=== PATIENT | female | born 1965 | race Caucasian/White ===

== ENCOUNTER 2018-11-27 05:59 | Inpatient (IN) | payer BC ==
[2018-11-27] MEDS ORDERED: Lactated Ringers 1000 ML Bag* 1,000 ML IV SCH (06:00)
[2018-11-27] MEDS ORDERED: Famotidine IV* 10 MG/ML 2 ML (20 mg) IV ONE (06:00)
--- OUTSIDE RECORDS SUMMARY | 2018-11-27 06:02 | XMS REPORT | Continuity of Care Document ---
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 Onset: 11/23/2013 Irritable bowel syndrome Matt Billings M.D. Onset: 11/23/2013 Hiatal hernia Matt Billings M.D. Onset: 11/23/2013 Social History Type Date Description Comments Sex Unknown Tobacco Use Start: Unknown Never Smoked Cigarettes Smoking Status Reviewed: 11/15/18 Never Smoked Cigarettes ETOH Use Never used alcohol ETOH Use Denies alcohol use Tobacco Use Start: Unknown Patient has never smoked Recreational Drug Use Never Used Drugs Exercise Type/Frequency Does not exercise Allergies, Adverse Reactions, Alerts Active Allergies Reaction Severity Comments Date NKDA 11/23/2013 Multiple Food Allergies' 10/28/2017 Medications Active Medications SIG Qnty Indications Ordering Date Provider Suprep Bowel Prep Kit take according to 354ml Cm Last 10/20/2018 the instructions you MD João 17.5-3.13-1.6GM/177ML received, the Solution afternoon before and morning of your procedure. [facility] Wort 75mg daily Unknown 150mg Capsules Iron 1 by mouth every day Unknown 325(65Fe) mg Tablets Vitamin C 1 (250MG) by mouth Unknown daily Acetaminophen 2 every morning Unknown 500mg Tablets Magnesium 1 by mouth every day Unknown 250mg Tablets Glucosamine 1500 1 by mouth every day Unknown Complex 1500Com Capsules Flaxseed Oil 1200 MG daily Unknown Oil Coconut Oil 1000 mg daily Unknown Oil Norlyda 1 by mouth every day Unknown 0.35mg Tablets Vitamin K2 1 by mouth every day Unknown 100mcg Capsules Vitamin B 12 2 tabs daily Unknown 2500mcg chewable Green Tea Gel 1 cap bid Unknown 400mg L-Carnitine 1 cap daily Unknown 500mg Vitamin D-3 1 by mouth every day Unknown 1000Unit Capsules Alphalipoic Acid 1 cap Unknown 200mg Vitamin B-1 2 caps once a day Unknown 100mg Tablets Immunizations CPT Code Status Date Vaccine Lot # [id number] Given 09/12/2014 Afluria Vaccine Vital Signs Date Vital Result Comment 11/15/2018 9:22am Heart Rate 58 /min Respiratory Rate 18 /min Body Temperature 98.9 F 10/20/2018 3:06pm Height 66 inches 5'6" Weight 191.00 lb Heart Rate 72 /min BP Systolic Sitting 114 mmHg BP Diastolic Sitting 80 mmHg Respiratory Rate 16 /min Body Temperature 98.2 F BMI (Body Mass Index) 30.8 kg/m2 Results Test Date Facility Test Result H/L Range Note Laboratory test 11/14/2018 [facility] Clotest SEE RESULT 1 , [address] [place] [address] [phone] Laboratory test 09/19/2018 [facility] HCG < 0.60 mIU/ mL [address] [place] [address] [phone] FSH (Follicle Stim Hormone) 5.5 mIU/mL 4 1 [id number] 2 SEE RESULT BELOW Name: HAO CHOU : [address]: Cm Moyer MD Acct: [id number] Unit: [id number] AGE: 53 Location: [facility] Re11/14/18 SEX: F Status: DEP REF SPEC: [id number] CHUY: 11/14/18 [facility] DR: Cm Moyer MD REQ: [id number] RECD: 11/14/18 STATUS: BRANNON MCNEILL DR: Radha Orta MD _ SOURCE: GAS ANTRUM SPDESC: ORDERED: Clotest COMMENTS: [id number] Procedure Result Reported Site Clotest Final 11/15/18743 ML Clotest Negative * ML - Main Lab . END OF REPORT DEPARTMENT OF PATHOLOGY, [address] [place] [address] Ramu Yoder M.D. Director [facility] # [id number] 3 <5.0 Negative 5.0 - 25.0 Indeterminate (Repeat testing recommended after 72 hours) >25.0 Positive Perimenopausal women can display HCG levels of up to 20 mIU/mL 4 Normally menstruating females - Follicular phase 3 - 9 - Mid-cycle peak 4 - 23 - Luteal phase 1 - 6 Postmenopausal females 16 - 114 Procedures Date Code Description Status 12/08/2013 08782021 Mammogram Completed Medical Devices Description No Information Available Encounters Type Date Location Provider Dx Diagnosis Office Visit 10/20/2018 Surgical Cm Last D50.8 Other iron deficiency 3:00p [facility] MD anemias Office Visit 05/26/2018 [facility] Edil Fam, N85.8 Other specified 4:00p [facility] noninflammatory disorders of uterus M54.5 Low back pain R10.2 Pelvic and perineal pain Assessments Date Code Description Provider 10/20/2018 D50.8 Other iron deficiency anemias Cm Moyer MD 05/26/2018 N85.8 Other specified noninflammatory disorders of Dvalejandra Fam MD uterus 05/26/2018 M54.5 Low back pain Edil Fam MD 05/26/2018 R10.2 Pelvic and perineal pain Edil Fam MD Plan of Treatment Future Appointment(s):12/14/2018 3:00 pm - DOREEN Stone-Jaquan at [facility]10/20/2018 - Cm Moyer, MDD50.8 Other iron deficiency anemiasComments:History of anemia of unknown etiology and abdominal pain plan for panendoscopy with risks include but not limited to bleeding and perforation discussed Functional Status Description No Information Available Mental Status Description No Information Available Referrals Refer to Reason for Referral Status Appt Date Khadijah Nixon MD Sent [address] [place] [address] [phone]
--- OUTSIDE RECORDS SUMMARY | 2018-11-27 06:02 | XMS REPORT | Continuity of Care Document ---
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 Medicine Problems Active Problems Provider Date Migraine [...] Result H/L Range Note Laboratory test 11/14/2018 [facility] Clotest SEE RESULT 1 , [address] [place] [address] [phone] Laboratory test 11/14/2018 [facility] Surgical SEE RESULT 3 , [address] [address] [phone] Laboratory test 09/19/2018 [facility] HCG < 0.60 [address] mIU/[place] [address] [phone] FSH (Follicle Stim Hormone) 5.5 mIU/mL 6 1 [id number] 2 SEE RESULT BELOW Name: HAO CHOU : [address]: Cm Moyer MD Acct: [id number] Unit: [id number] AGE: 53 Location: [facility] Re11/14/18 SEX: F Status: DEP REF SPEC: [id number] CHUY: 11/14/[address] [facility] [address]: Cm Moyer MD REQ: [id number] RECD: 11/14/18 STATUS: BRANNON MCNEILL DR: Radha Orta MD _ SOURCE: GAS ANTRUM SPDESC: ORDERED: Clotest COMMENTS: [id number] Procedure Result Reported Site Clotest Final 11/15/18 26 ML Clotest Negative * ML - Main Lab . END OF REPORT DEPARTMENT OF PATHOLOGY, [address] [place] [address] Ramu Yoder M.D. Director [facility] # [id number] 4 SEE RESULT BELOW Name: HAO CHOU : [address]: Cm Moyer MD Acct: [id number] Unit: [id number] AGE: 53 Location: [facility] Re11/14/18 SEX: F Status: DEP REF SPEC: [id number] CHUY: 11/14/[address] [facility] [address]: Cm Moyer MD REQ: [id number] RECD: 11/14/18 STATUS: BOOGIE MCNEILL DR: Radha Orta MD _ ORDERED: LEVEL 4/4, IMMUNO-FIRST, IMMUNO-ADDL/3 COMMENTS: [id number] ADDENDUM Addendum: The following immunohistochemical stains are performed with appropriate controls were performed on part 3 as follows. MLH-1 intact MSH 2 intact MSH 6 intact PMS 2 intact No evidence of DNA mismatch repair proteins defect identified. Addendum Signed (signature on file) Ramu Yoder MD 1151 An H. pylori immunohistochemical stain, with appropriately reacting controls , was performed on sections cut from specimen one and is negative for Helicobacter organisms. Addendum Signed (signature on file) Diamante Lancaster MD 05/02 0930 FINAL DIAGNOSIS 1. Stomach, antrum, biopsy: -- Gastric antral mucosa with mild nonspecific chronic inflammation. -- No active gastritis nor Helicobacter pylori-like organisms identified on H E microscopy. See comment. 2. Gastroesophageal junction, biopsy: -- Superficial squamous mucosa with no significant pathologic abnormality. -- No evidence of reflux esophagitis identified. -- No squamous component is identified. 3. Colon, cecum, biopsy: -- Invasive, moderately differentiated colonic adenocarcinoma. -- Depth of invasion cannot be assessed on this limited biopsy material. See comment. CONTINUED ON NEXT PAGE DEPARTMENT OF PATHOLOGY, [address] [place] [address] Ramu Yoder M.D. Director [facility] # [id number] 4. Colon, sigmoid, biopsy: -- Tubular adenoma. -- No high grade dysplasia or malignancy. Comment: Immunohistochemical stain for Helicobacter pylori-like organisms is pending on part 1 and will be reported in an addendum. Immunohistochemical stains for mismatch repair protein expression panel is pending on part 3 and will be reported in an addendum. Dr. Lancaster has reviewed this case and concurs. CLINICAL HISTORY Anemia PRE-OPERATIVE DIAGNOSIS 1) Rule out H. pylori POST-OPERATIVE DIAGNOSIS Colonoscopy: cecal mass; sigmoid polyp GROSS DESCRIPTION 1. The specimen is received in formalin labeled, Antral Biopsy, and consists of a 0.8 x 0.2 by up to 0.2 cm witt-pink irregular soft tissue fragment which is submitted entirely in one cassette. 2. The specimen is received in formalin labeled, GE Junction Biopsies, and consists of two white-pink irregular soft tissue fragments measuring 0.3 x 0.2 x 0.1 cm and 0.6 by up to 0.4 x 0.1 cm which are submitted entirely in one cassette. 3. The specimen is received in formalin labeled, Cecal Mass Biopsies, and consists of two witt-pink irregular soft tissue fragments measuring 0.2 x 0.2 x 0.1 cm and 0.3 x 0.2 x 0.2 cm admixed with scant red-brown blood clot. Entirely submitted, one cassette. 4. The specimen is received in formalin labeled, Sigmoid Colon Polyp, and consists of a 0.8 x 0.8 by up to 0.4 cm aggregate of witt-pink irregular to polypoid soft tissue fragments which is submitted entirely in one cassette. CONTINUED ON NEXT PAGE DEPARTMENT OF PATHOLOGY, [facility] [place] [id number] Ramu Yoder M.D. Director [facility] # [id number] Signed by and Reported on: Ramu Yoder MD 04/04 1231 END OF REPORT DEPARTMENT OF PATHOLOGY, [facility] [place], [place] [address] Ramu Yoder M.D. Director [facility] # [id number] 5 <5.0 Negative 5.0 - 25.0 Indeterminate (Repeat testing recommended after 72 hours) >25.0 Positive Perimenopausal women can display HCG levels of up to 20 mIU/mL 6 Normally menstruating females - Follicular phase 3 - 9 - Mid-cycle peak 4 - 23 - Luteal phase 1 - 6 Postmenopausal females 16 - 114 Procedures Date Code Description Status 11/14/2018 39049 Colonoscopy Flexible Remove Tumor/Polyp/Lesion Snare Completed Technique 11/14/2018 84472 Endoscopy Upper GI Biopsy Completed 12/08/2013 [id number] Mammogram Completed Medical Devices Description No Information Available Encounters Type Date Location Provider Dx Diagnosis Office Visit 11/15/2018 Surgical Cm Last C18.0 Malignant neoplasm of 8:45a [facility] MD cecum Office Visit 10/20/2018 Sandra Last D50.8 Other iron deficiency 3:00p [facility] MD anemias Office Visit 05/26/2018 [facility] Edil Fam, N85.8 Other specified 4:00p [facility] noninflammatory disorders of uterus M54.5 Low back pain R10.2 Pelvic and perineal pain Assessments Date Code Description Provider 11/17/2018 C18.0 Malignant neoplasm of cecum Cm Moyer MD 11/15/2018 C18.0 Malignant neoplasm of cecum Cm Moyer MD 11/14/2018 C18.0 Malignant neoplasm of cecum Cm Moyer MD 11/14/2018 D12.5 Benign neoplasm of sigmoid colon Cm Moyer MD 11/14/2018 K57.30 Diverticulosis of large intestine without Cm Moyer MD perforation or abscess without bleeding 11/14/2018 D50.8 Other iron deficiency anemias Cm Moyer MD 11/14/2018 K29.50 Unspecified chronic gastritis without Cm Moyer MD bleeding 10/20/2018 D50.8 Other iron deficiency anemias Cm Moyer MD 05/26/2018 N85.8 Other specified noninflammatory disorders of Edil Fam MD uterus 05/26/2018 M54.5 Low back pain Edil Fam MD 05/26/2018 R10.2 Pelvic and perineal pain Edil Fam MD Plan of Treatment Future Appointment(s):11/27/2018 7:30 am - Cm Moyer [facility] at [facility]12/14/2018 3:00 pm - CARLOS StoneP-Cde at [facility]11/15/2018 - Cm Moyer, [facility]18.0 Malignant neoplasm of cecumComments:had a long discussion with patient regarding cecal tumor. Discussed surgery and risks ibnlt bleeding, infection, injury to bowel, ureter, liver, anastomotic leak, other. plan for robotic resection, will order ct chest\\ abdomen/pelvis. All ?'s answered. Functional Status Description No Information Available Mental Status Description No Information Available Referrals Refer to Dr Reason for Referral Status Appt Date Cm Moyer MD FOR 11/27/18 ---[id number]--- INPATIENT Created [address] [place] [address] [phone] Khadijah Nixon MD Sent [address] [place] [address] [phone]
[2018-11-27] MEDS ORDERED: Famotidine IV* 10 MG/ML 2 ML (20 mg) ONE (06:29)
[2018-11-27] MEDS ORDERED: ceFOXitin 2 GM IVPREMIX* 2 GM/50 ML BAG ONE (06:29)
[2018-11-27] MEDS ORDERED: Bupivacaine 0.5%* 50 ML MDV VIAL ONE (06:41)
[2018-11-27] MEDS: Buffered Lidocaine 1% SYRIN* 1 ML/SYRINGE INTRADERM ONE ×2 (06:50→15:20)
[2018-11-27] MEDS ORDERED: Rocuronium* 10 MG/ML VIAL ONE (07:24)
[2018-11-27] MEDS ORDERED: fentaNYL* 50 MCG/ML 5 ML VIAL (250 MCG VIAL) ONE (07:30)
[2018-11-27] MEDS ORDERED: Midazolam* 1 MG/ML 5 ML VIAL (5 MG) ONE (07:31)
[2018-11-27] MEDS ORDERED: Scopolamine 1.5 mg* PATCH ONE (08:11)
[2018-11-27] MEDS ORDERED: Ondansetron INJ* 2 MG/ML VIAL ONE (08:14)
[2018-11-27] MEDS ORDERED: EPHEDrine (Pressors)* 50 MG/ML VIAL ONE (08:14)
[2018-11-27] MEDS ORDERED: Succinylcholine* 20 MG/ML 10 ML VIAL ONE (08:14)
[2018-11-27] MEDS ORDERED: DiMENhydriNATE IV* 50 MG/ML VIAL ONE (08:14)
[2018-11-27] MEDS ORDERED: Ketorolac INJ* 30 MG/ML 1 ML VIAL ONE (08:14)
[2018-11-27] MEDS ORDERED: Dexamethasone IV* 4 MG/ML 1 ML (4 MG) ONE (08:14)
[2018-11-27] MEDS ORDERED: Propofol* 10 MG/ML 20 ML BTL ONE (08:14)
[2018-11-27] MEDS ORDERED: Lidocaine 2% PF * 5 ML VIAL ONE (08:15)
[2018-11-27] MEDS ORDERED: HYDROmorphone INJ1* 1 MG/ML SYRINGE ONE ×2 (11:32→13:26)
[2018-11-27] MEDS ORDERED: Neostigmine Methylsulfate* 1 MG/ML 10 ML VIAL (1 mg/ml) ONE (11:55)
[2018-11-27] MEDS ORDERED: Glycopyrrolate IV* 0.2 MG/ML 1 ML VIAL ONE (11:55)
[2018-11-27] MEDS ORDERED: HYDROmorphone INJ1* 1 MG/ML SYRINGE IV PRN (12:20)
[2018-11-27] MEDS ORDERED: Acetaminophen IV 1GM/100ML * 1,000 MG/100 ML VIAL IVPB ONE (12:20)
[2018-11-27] MEDS ORDERED: Naloxone* 0.4 MG/ML 1 ML VIAL IV PRN (12:20)
[2018-11-27] MEDS ORDERED: DiMENhydriNATE IV* 50 MG/ML VIAL IV PUSH PRN (12:20)
[2018-11-27] MEDS ORDERED: Acetaminophen IV 1GM/100ML * 100 ML ONE (12:28)
[2018-11-27] MEDS ORDERED: HYDROmorphone INJ* 0.5 MG/0.5 ML SYRINGE IV SLOW PU PRN (13:05)
[2018-11-27] MEDS ORDERED: Ondansetron INJ* 2 MG/ML VIAL IV PRN (13:14)
[2018-11-27] MEDS ORDERED: HYDROmorphone INJ1* 1 MG/ML SYRINGE IV SLOW PU PRN (13:22)
[2018-11-27] MEDS: Lactated Ringers 1000 ML Bag* 1,000 ML IV SCH ×2 (14:30→22:06)
[2018-11-27] MEDS: Ketorolac INJ* 30 MG/ML 1 ML VIAL IV SCH ×2 (14:58→22:00)
[2018-11-27] MEDS: Heparin VIAL(*) 5000 UNITS/ML VIAL (FIVE THOUSAND) SUBCUT SCH (22:00)
--- NOTE | 2018-11-27 22:31 | OP ---
DATE OF OPERATION: 11/27/18 - ROOM #334 DATE OF : 67 SURGEON: Cm Moyer MD SAFETY PROFESSIONAL: DOREEN Coles PRE-OP DIAGNOSIS: Right cecal mass. POST-OP DIAGNOSIS: Right cecal mass. OPERATIVE PROCEDURE: Robotic right colectomy. INDICATIONS FOR PROCEDURE: Right cecal mass noted on colonoscopy. Risks of surgery included, but not limited to, bleeding, infection, injury to the ureter or other intraabdominal contents including the bowel, the liver, anastomotic leak, VT, pneumonia, PE, arrhythmia, even explained to the patient. She seemed to understand and agreed to the procedure and all questions were answered. DESCRIPTION OF PROCEDURE: The patient was taken to the operative room, placed supine. Preoperative antibiotics given. After the successful induction of general endotracheal anesthesia, the abdomen was prepped and draped in a sterile fashion. A Kaufman catheter had been placed. A 5-mm trocar was placed in the left upper quadrant under direct visualization of the camera using a bladeless Optiview trocar. Pneumoperitoneum was achieved with 15 mmHg. A camera was placed in the abdomen. The abdomen was scanned. There was no obvious injury from trocar placement. Then 8-mm trocars were placed in line along the left side of the abdomen, down towards the pelvis and spaced. An 8 mm assist port was also placed, all under direct visualization of the camera. Cecum was gently mobilized medially along with the ascending colon and hepatic flexure. The ileocolic vessels were isolated and divided using a stapler. The mesentery was taken towards the distal terminal ileum, using Firefly technology there was good blood supply to the area, divided with a stapler of mid distal terminal ileum. The mesentery was then taken up towards the hepatic flexure. Colon was divided there in similar fashion using 60-mm staplers similar to the terminal ileum. The colon was completely freed from the surrounding tissue. The ureter was identified and avoided. A aibc-bk-thuk stapled anastomosis was performed using a 60-mm stapler closing the defect with a running 3-0 V-locked suture in 2 layers. Again, Firefly was used and good blood supply was noted to the proximal transverse colon and small bowel and anastomosis. Mesenteric rent was closed using a running 3-0 V-locked stitch. The abdomen was scanned, no obvious injuries were noted. A right lower quadrant muscle splitting appendix- like McBurney's point incision was made and the specimen was removed. Large firm mass was noted. The omentum was placed over the anastomosis. The defect was closed in layers using #1 PDS suture for the muscle splitting incision. Perineum was closed with 3-0 Vicryl. Skin was closed with Monocryl and glue. The trocars were all removed, the trocar sites were all closed with Monocryl and glue. The patient tolerated the procedure well. She was extubated and taken to the recovery in stable condition. [id number]/[facility] #: [id number] [facility]
[2018-11-28] MEDS: Ketorolac INJ* 30 MG/ML 1 ML VIAL IV SCH ×4 (03:57→22:31)
[2018-11-28] MEDS: Heparin VIAL(*) 5000 UNITS/ML VIAL (FIVE THOUSAND) SUBCUT SCH ×3 (05:32→22:33)
[2018-11-28] MEDS: Lactated Ringers 1000 ML Bag* 1,000 ML IV SCH ×2 (06:15→19:24)
[2018-11-28 06:43] LABS: ABS Lymphocytes 1.3 10^3/ul (1.0-4.8); ABS Monocytes 0.6 10^3/ul (0-0.8); ABS Neutrophils 5.5 10^3/ul (1.5-7.7); Hematocrit 30 % (35-47); Hemoglobin 9.9 g/dL (12.0-16.0); Mean Corpuscular HGB Conc 33 g/dL (31-36); Mean Corpuscular Hemoglobin 28 pg (27-31); Mean Corpuscular Volume 86 fL (80-97); Mean Platelet Volume 7.5 fL (7.4-10.4); Nucleated Red Blood Cells % 0.1; Platelet Count 240 10^3/uL (150-450); Red Cell Distribution Width 26 % (10-15); White Blood Count 7.5 10^3/uL (3.5-10.8)
[2018-11-28 06:48] LABS: Calcium 8.2 mg/dL (8.6-10.3); Potassium 3.8 mmol/L (3.5-5.0)
[2018-11-28 06:54] LABS: BUN/Creatinine Ratio 9.4 (8-20); EGFR African American 117.9 (>60); EGFR Non-African American 97.4 (>60)
[2018-11-28] MEDS: Acetaminophen TAB* 325 MG PO PRN ×2 (10:06→18:02)
--- NOTE | 2018-11-28 15:15 | PN ---
Progress Note - Progress Note Date of Service: 11/28/18 SOAP: Subjective: []no flatus or bm Objective: [] Temp Pulse Resp BP Pulse Ox 98.1 F 68 16 98/50 95 11/28/18 11:29 11/28/18 11:29 11/28/18 11:29 11/28/18 11:35 11/28/18 11:29 Laboratory Last Values WBC 7.5 10^3/uL (3.5-10.8) 11/28/18 05:30 RBC 3.50 10^6 /uL (3.70-4.87) L 11/28/18 05:30 Hgb 9.9 g/dL (12.0-16.0) L 11/28/18 05:30 Hct 30 % (35-47) L 11/28/18 05:30 MCV 86 fL (80-97) 11/28/18 05:30 MCH 28 pg (27-31) 11/28/18 05:30 MCHC 33 g/dL (31-36) 11/28/18 05:30 RDW 26 % (10-15) H 11/28/18 05:30 Plt Count 240 10^3/uL (150-450) 11/28/18 05:30 MPV 7.5 fL (7.4-10.4) 11/28/18 05:30 Neut % (Auto) 74.1 % 11/28/18 05:30 Lymph % (Auto) 17.0 % 11/28/18 05:30 [place] % (Auto) 8.5 % 11/28/18 05:30 Eos % (Auto) 0.0 % 11/28/18 05:30 Baso % (Auto) 0.4 % 11/28/18 05:30 Absolute Neuts (auto) 5.5 10^3/ul (1.5-7.7) 11/28/18 05:30 Absolute Lymphs (auto) 1.3 10^3/ul (1.0-4.8) 11/28/18 05:30 Absolute Monos (auto) 0.6 10^3/ul (0-0.8) 11/28/18 05:30 Absolute Eos (auto) 0.0 10^3/ul (0-0.6) 11/28/18 05:30 Absolute Basos (auto) 0.0 10^3/ul (0-0.2) 11/28/18 05:30 Absolute Nucleated RBC 0.0 10^3/ul 11/28/18 05:30 Nucleated RBC % 0.1 11/28/18 05:30 Sodium 139 mmol/L (135-145) 11/28/18 05:30 Potassium 3.8 mmol/L (3.5-5.0) 11/28/18 05:30 Chloride 109 mmol/L (101-111) 11/28/18 05:30 Carbon Dioxide 24 mmol/L (22-32) 11/28/18 05:30 Anion Gap 6 mmol/L (2-11) 11/28/18 05:30 BUN 6 mg/dL (6-24) 11/28/18 05:30 Creatinine 0.64 mg/dL (0.51-0.95) 11/28/18 05:30 Est GFR ( Amer) 117.9 (>60) 11/28/18 05:30 Est GFR (Non-Af Amer) 97.4 (>60) 11/28/18 05:30 BUN/Creatinine Ratio 9.4 (8-20) 11/28/18 05:30 Glucose 88 mg/dL (70-100) 11/28/18 05:30 Calcium 8.2 mg/dL (8.6-10.3) L 11/28/18 05:30 Assessment: []s/p right colectomy, await return bowel fxn Plan: []cont iv, oob
[2018-11-29] MEDS: Ketorolac INJ* 30 MG/ML 1 ML VIAL IV SCH ×2 (03:10→08:49)
[2018-11-29] MEDS: Lactated Ringers 1000 ML Bag* 1,000 ML IV SCH (03:15)
[2018-11-29] MEDS: Heparin VIAL(*) 5000 UNITS/ML VIAL (FIVE THOUSAND) SUBCUT SCH ×3 (06:01→21:50)
--- NOTE | 2018-11-29 11:13 | PN ---
Progress Note - Progress Note Date of Service: 11/29/18 Note: Subjective Patient is post op day 2 for robotic right colectomy. She appears to be doing well and still has some mild abdominal pain. She states sitting up makes her pain worse and it is better when lying down. She has been managing her pain with Toradol and Tylenol; she took 2 doses of Tylenol last night. She is tolerating clear liquid diet and will be advancing to solids at lunch. She had a small bowel movement this morning and is passing flatus. Patient is ambulating well. Objective Vital Signs Temp 97.6 F 11/29/18 07:00 Pulse 55 11/29/18 07:00 Resp 16 11/29/18 08:45 BP 130/65 11/29/18 07:00 Pulse Ox 95 11/29/18 08:45 Intake & Output 11/28/18 11/29/18 11/29/18 18:59 06:59 18:59 Intake Total 2496 2204 990 Output Total 1150 1900 1300 Balance 1346 304 -310 Intake: IV Fluids 196 1954 990 LR 196 1954 990 Oral 2300 250 Output: Urine 500 1900 1300 Kaufman 650 Other: Estimated Void Medium # Voids 3 General: Patient is sitting on the bed in NAD. She is pleasant and cooperative. CV: RRR Lungs: CTA in all rodriguez Abdomen: Soft, mild tenderness to the left side and moderate tenderness to the right. Incision wounds are clean and dry, without drainage or erythema. Hypoactive bowel sounds. Extremities: No edema to the lower extremities. Assessment/ Plan Patient is post op day 2 for robotic right colectomy. Patient has a good support system. She appears to be doing well and is not taking any narcotics for pain management. Adequate fluid intake and able to tolerate diet. She has been ambulating and had a BM this morning. Advance diet and heplock IV as per Dr. Moyer. Switch pain medication to PO Motrin and narcotic PRN. If she can tolerate lunch and oral pain medication, possible D/C to home.
[2018-11-29] MEDS ORDERED: Ketorolac INJ* 30 MG/ML 1 ML VIAL IV PRN (11:37)
[2018-11-29] MEDS: Ibuprofen TAB* 600 MG PO PRN ×2 (14:35→21:53)
[2018-11-29] MEDS ORDERED: oxyCODONE/Acetamin 5/325 MG* TAB ONE (17:32)
[2018-11-29] MEDS ORDERED: oxyCODONE/Acetamin 5/325 MG* TAB PO PRN (17:34)
[2018-11-30] MEDS: Heparin VIAL(*) 5000 UNITS/ML VIAL (FIVE THOUSAND) SUBCUT SCH (05:32)
[2018-11-30 07:32] VITALS: BP 119/59
[2018-11-30] MEDS: Acetaminophen TAB* 325 MG PO PRN (09:18)
--- NOTE | 2018-11-30 09:58 | PN ---
Progress Note - Progress Note Date of Service: 11/30/18 SOAP: Subjective: Pt comfortable in bed, in NAD. Has ambulated in kaur this morning. tolerating diet, + flatus, + BM loose[] Objective: Vital Signs Temp 97.9 F 11/30/18 07:26 Pulse 53 11/30/18 07:26 Resp 18 11/30/18 07:26 BP 119/59 11/30/18 07:26 Pulse Ox 97 11/30/18 07:26 Intake & Output 11/29/18 11/30/18 11/30/18 18:59 06:59 18:59 Intake Total 1590 1400 Output Total 3200 800 200 Balance -1610 600 -200 Intake: IV Fluids 990 LR 990 Oral 600 1400 Output: Urine 3200 800 200 Other: # Bowel Movements 0 PEX:[] VSSAF Chest: CTA B/L CVS: RRR ABD: obese, soft. incisions C/D/I Hypoactive BS's Incisional tendernes EXT: Calves soft, non tender Assessment: POD#3 S/P Robotic Right Colectomy, Stable [] Plan: D/C Home today F/U in office next week, 12/08/18 @ 10:30 []
--- NOTE | 2018-11-30 10:43 | DS ---
AMENDED REPORT NOW INCLUDES DESIGNATED COSIGNER DISCHARGE SUMMARY: DATE OF ADMISSION: 11/27/18 DATE OF DISCHARGE: 11/30/18 SURGEON: Dr. Cm Moyer.* (DICTATED BY NUNU TANG) REASON FOR ADMISSION: Right cecal mass. HOSPITAL COURSE: The patient was admitted for robotic assisted right hemicolectomy for right cecal mass on 11/27/18. The patient tolerated the procedure well, was then transferred to the recovery room and to the surgical care unit for postoperative medical care. Hospital course was uneventful. The patient's bowel function returned, on 11/30/18, postop day #3, patient had a small BM. The patient has only required 2 Percocets postoperatively for pain. She had been ambulating in the halls, tolerating her diet, and had had small bowel movements. on physical exam chest was clear, incision sites were clean dry and intact. She wished to go home. The patient will be discharged on in stable condition to home. The patient's discharge instructions were given regarding her diet, medications, and activity. These were also reviewed with the patient this morning during my exam. The patient has a followup appointment set up at the office next 12/08/18, at 10:30 a.m. All her questions were answered. The patient is also advised to call the office if she has any issues or problems between now and her first postoperative visit. Discharged to home in stable condition on 11/30/18. NUNU TANG [id number]/[facility] #: [id number] [facility]
[2018-11-30] MEDS: Ibuprofen TAB* 600 MG PO PRN (11:05)
== END 2018-11-30 11:30 | disposition home or self-care (01) | DRG 221 ==
LOC: AA 05:59 → SSU 13:06
PROVIDERS: ADMIT Surgery; ATTEND Surgery
PROC: 8E0W4CZ Robotic Assisted Procedure of Trunk Region, Percutaneous Endoscopic Approach (ICD-10-PCS; 2018-11-27)
PROC: 0DTF4ZZ Resection of Right Large Intestine, Percutaneous Endoscopic Approach (ICD-10-PCS; principal; 2018-11-27 07:30)
DX: C18.0 Malignant neoplasm of cecum (principal); F41.9 Anxiety disorder, unspecified; F32.9 Major depressive disorder, single episode, unspecified; G43.909 Migraine, unspecified, not intractable, without status migrainosus; K58.9 Irritable bowel syndrome, unspecified; Z90.49 Acquired absence of other specified parts of digestive tract; Z98.51 Tubal ligation status; Z80.1 Family history of malignant neoplasm of trachea, bronchus and lung; Z82.49 Family history of ischemic heart disease and other diseases of the circulatory system; Z83.3 Family history of diabetes mellitus; Z91.018 Allergy to other foods
CPT/HCPCS: 36415; 80048; 85025; 88309; 88342; 93005; A9270-GY; J0330; J0694; J1100; J1170; J1240; J1644; J1885; J2250; J2405; J2704; J2710; J3010; J3490